=== PATIENT | female | born 1945 | race Asian ===

== ENCOUNTER 2018-10-18 12:34 | Outpatient (CLI) | payer OTHER | END 2018-10-18 21:15 | disposition home or self-care (01) | LOC: SMI 12:34 | PROVIDERS: ATTEND Internal Medicine | DX: K43.9 Ventral hernia without obstruction or gangrene (principal); K83.8 Other specified diseases of biliary tract; R93.49 Abnormal radiologic findings on diagnostic imaging of other urinary organs; Z90.49 Acquired absence of other specified parts of digestive tract | CPT/HCPCS: 74181 ==

== ENCOUNTER 2019-06-09 20:31 | Inpatient (IN) | payer OTHER, MEDICAID ==
[~2019-06-09] VITALS: Ht 152.4 cm; Wt 102.1 kg
[2019-06-09 20:35] VITALS: BP_SYST 163
--- NOTE | 2019-06-09 20:59 | NUR ---
, Emir, would like call back on work phone number when work up has been completed.
[2019-06-09] MEDS ORDERED: PIPERACILLIN/TAZO 3.375 GM in NS 50 ML IV ONE (21:15)
[2019-06-09] MEDS ORDERED: NACL 0.9% 1,000 ML IV ONE ×2 (21:15)
--- NOTE | 2019-06-09 21:16 | NUR ---
Placed in room 6 . Placed on site monitor, blood pressure machine and pulse oximeter. To gown for exam. Side rails up. Report given to SATHISH PURI.
--- NOTE | 2019-06-09 21:30 | NUR ---
# 22 gauge angiocath placed to Left hand. Use of asceptic technique. Opsite placed over site. Blood return noted. Blood for lab drawn from site. Flushed with 10 cc of normal saline. No evidence of infiltration noted. Patient tolerated well.
[2019-06-09] MEDS ORDERED: PIPERACILLIN/TAZOBACTAM 3.375 GM/VIAL (ZOSYN) IV ONE (21:45)
--- NOTE | 2019-06-09 21:50 | NUR ---
patient BIB BLS transport from home with c/o generalized weakness. patient is A&O x 2 and is responsive to pain and other stimili. patient was seen at [facility] for a UTI. patient was discharged with antibiotics that have not been filled. no other complaint or injury at this time.
[2019-06-09 21:56] LABS: BASOPHILS % (AUTO) 0.4 % (0.0-2.0); EOSINOPHILS % (AUTO) 0.3 % (0.0-4.0); HEMATOCRIT 36.7 % (36-48); HEMOGLOBIN 13.1 g/dL (12.0-16.0); LYMPHOCYTES # (AUTO) 0.5 K/uL (1.0-5.5); LYMPHOCYTES % (AUTO) 6.6 % (20.5-51.5); MEAN CORPUSCULAR HEMOGLOBIN 31 pg (27-31); MEAN CORPUSCULAR HGB CONC 36 % (32-36); MEAN CORPUSCULAR VOLUME 88 fL (79.0-98.0); MONOCYTES # (AUTO) 0.7 K/uL (0.0-1.0); NEUTROPHILS # (AUTO) 5.9 K/uL (1.8-7.7); NEUTROPHILS % (AUTO) 82.7 % (40.0-70.0); RED BLOOD CELL COUNT(AUTO) 4.17 MIL/uL (4.2-6.2); RED CELL DISTRIBUTION WIDTH 16.5 % (9.0-15.0); WHITE BLOOD COUNT (AUTO) 7.2 K/uL (4.8-10.8)
[2019-06-09 22:01] LABS: ANION GAP 8 (5-15); CHLORIDE 99 mmol/L (98-107); POTASSIUM 3.7 mmol/L (3.5-5.1); SODIUM SERUM 134 mmol/L (136-145)
[2019-06-09 22:02] LABS: INR 1.2 (0.8-1.2); PROTHROMBIN TIME 12.3 SECS (9.5-12.5)
[2019-06-09 22:10] LABS: PLATELET COUNT (AUTO) 180 K/uL (130-430)
--- NOTE | 2019-06-09 23:00 | NUR ---
ER at bedside examining patient.
[2019-06-09 23:08] LABS: ALANINE AMINOTRANSFERASE 20 U/L (12-78); ALBUMIN 1.7 g/dL (3.4-4.8); ASPARTATE AMINOTRANSFERASE 52 U/L (10-37); CREATININE 1.15 mg/dL (0.55-1.30); GLUCOSE 303 mg/dL (70-99); TOTAL BILIRUBIN 4.1 mg/dL (0.0-1.0); UREA NITROGEN, BLOOD 12 mg/dL (8-21)
[2019-06-09 23:11] LABS: CALCIUM 8.6 mg/dL (8.4-11.0)
[2019-06-10] VITALS (7 sets, daily range): BP systolic 134–160
--- NOTE | 2019-06-10 | NUR ---
IV site lost. unable to obtain new IV, Charge nurse notified.
--- NOTE | 2019-06-10 02:30 | NUR ---
Patient will be admitted to care of Dr. Winston. Admitted to Tele unit. Will go to room 103-A. Belongings list completed. Summary report printed. Report will be given at bedside.
--- NOTE | 2019-06-10 02:52 | NUR ---
Admission Note Received patient from ER with diagnosis of Sepsis. Initial Plan of Care discussed-patient verbalized understanding. Oriented to room, call light, pain management and safety.
--- NOTE | 2019-06-10 02:52 | NUR ---
ADMISSION: The patient, MANDY MG, 74 y/o, F admitted by XAVIER CALVO MD, was given written information regarding hospital policies, unit procedures and contact persons. Valuables were checked and documented.
[2019-06-10] MEDS: NACL 0.9% 1,000 ML IV SCH ×4 (03:03→22:49)
--- NOTE | 2019-06-10 04:50 | NUR ---
ROUNDS Patient in bed, sleeping at this time. No s/s of acute distress noted. Breathing even and unlabored. HOB raised. Skin warm and dry to touch. IVF infusing well, IV site is patent, no signs of infiltration or infection noted. Call light with patient. Bed alarm on. Will continue to monitor.
[2019-06-10] MEDS ORDERED: PIPERACILLIN/TAZOBACTAM 2.25 GM VIAL IV ONE (05:37)
[2019-06-10] MEDS: PIPERACILLIN/TAZO 2.25G/DEX-IS 50 ML IV SCH ×3 (05:44→17:52)
--- NOTE | 2019-06-10 06:16 | NUR ---
CLOSING NOTES Patient in bed sleeping at this time. No s/s of acute distress noted. Breathing even and unlabored. IVF infusing well, IV site patent, no signs of infiltration or infection noted. Skin warm and dry to touch. All needs met throughout shift. Fall and safety precautions maintained throughout shift. Will continue to monitor until patient care is endorsed to oncoming dayshift nurse.
[2019-06-10] MEDS ORDERED: MORPHINE 2 MG/ML INJ. SYRINGE IVP PRN (07:15)
[2019-06-10] MEDS ORDERED: ALBUTEROL SULFATE 0.083% 2.5 MG/3 ML VIAL.NEB INH PRN (07:15)
[2019-06-10] MEDS ORDERED: ONDANSETRON HCL 4 MG/2 ML VIAL IVP PRN (07:15)
--- NOTE | 2019-06-10 07:30 | NUR ---
Opening note Patient sitting up in bed at this time, no complaints of pain. no SOB. Iv patent, intact, and infusing fluids as ordered. No adverse side effects noted. On safety and aspiration precautions. HOB kept elevated, bed alarm on, bed in lowest position, 3 side rails up. call light within reach. patient in stable condition. Will continue to monitor.
[2019-06-10] MEDS ORDERED: DEXTROSE 50%-WATER 50 ML DISP.SYRIN IVP PRN (07:45)
[2019-06-10] MEDS ORDERED: D5W 1,000 ML IV PRN (07:45)
[2019-06-10] MEDS ORDERED: GLUCOSE 15 GM GEL (in 37.5 GM TUBE) PO PRN (07:45)
[2019-06-10] MEDS: INSULIN LISPRO SLIDING SCALE 100 UNITS/ML VIAL (humaLOG) SUBCUT PRN ×4 (08:19→20:30)
[2019-06-10 08:26] LABS: INR 1.2 (0.8-1.2); PROTHROMBIN TIME 11.9 SECS (9.5-12.5)
--- NOTE | 2019-06-10 08:30 | NUR ---
blood sugar check/ ultrasound Patient blood sugar checked and insulin given as ordered. Tray held until now due to ultrasound. Ultrasound done. Tray given to patient. patient tolerated breakfast well. No nausea, no vomiting noted.
[2019-06-10 08:49] LABS: ALANINE AMINOTRANSFERASE 20 U/L (12-78); CHLORIDE 102 mmol/L (98-107); POTASSIUM 3.4 mmol/L (3.5-5.1); SODIUM SERUM 136 mmol/L (136-145); UREA NITROGEN, BLOOD 11 mg/dL (8-21)
[2019-06-10 09:02] LABS: ALBUMIN 1.6 g/dL (3.4-4.8); ANION GAP 8 (5-15); ASPARTATE AMINOTRANSFERASE 49 U/L (10-37); CALCIUM 7.6 mg/dL (8.4-11.0); CREATININE 1.03 mg/dL (0.55-1.30); GLUCOSE 294 mg/dL (70-99)
[2019-06-10 10:28] LABS: BASOPHILS % (AUTO) 0.9 % (0.0-2.0); EOSINOPHILS # (AUTO) 0.1 K/uL (0.0-0.4); EOSINOPHILS % (AUTO) 1.3 % (0.0-4.0); HEMATOCRIT 33.8 % (36-48); LYMPHOCYTES # (AUTO) 0.7 K/uL (1.0-5.5); LYMPHOCYTES % (AUTO) 13.1 % (20.5-51.5); MEAN CORPUSCULAR HEMOGLOBIN 31 pg (27-31); MEAN CORPUSCULAR HGB CONC 36 % (32-36); MEAN CORPUSCULAR VOLUME 88 fL (79.0-98.0); MONOCYTES # (AUTO) 0.8 K/uL (0.0-1.0); MONOCYTES % (AUTO) 14.9 % (1.7-9.3); NEUTROPHILS # (AUTO) 3.8 K/uL (1.8-7.7); NEUTROPHILS % (AUTO) 69.8 % (40.0-70.0); PLATELET COUNT (AUTO) 103 K/uL (130-430); RED BLOOD CELL COUNT(AUTO) 3.84 MIL/uL (4.2-6.2); RED CELL DISTRIBUTION WIDTH 16.9 % (9.0-15.0); WHITE BLOOD COUNT (AUTO) 5.5 K/uL (4.8-10.8)
--- NOTE | 2019-06-10 10:30 | NUR ---
Rounds Patient sitting up in bed, no complaints of pain. No soB. Offered ice water, and bedpan. Patient denied need.
[2019-06-10] MEDS ORDERED: PRO40 PO (12:38)
[2019-06-10] MEDS ORDERED: FURO-150 PO (12:38)
[2019-06-10] MEDS ORDERED: SSNOVOLOG SUBCUT (12:38)
[2019-06-10] MEDS ORDERED: PROP10TA10 PO (12:38)
[2019-06-10] MEDS ORDERED: INSU100V9 SQ (12:38)
[2019-06-10] MEDS ORDERED: LACT10SO6 PO (12:38)
[2019-06-10] MEDS ORDERED: LISI-600 PO (12:38)
[2019-06-10] MEDS ORDERED: OSCD500 PO (12:38)
[2019-06-10] MEDS ORDERED: RIFA550T5 PO (12:38)
--- NOTE | 2019-06-10 12:45 | NUR ---
Lunch patient sitting up in bed at this time, eating lunch. tolerating well. No nausea, no vomiting noted. patient in stable condition.
--- NOTE | 2019-06-10 14:45 | NUR ---
Linen change Linens changed, skin care provided. patient in stable condition. No complaints of pain.
--- NOTE | 2019-06-10 17:45 | NUR ---
Dinner patient sitting up in bed, eating dinner, tolerating well. no nausea, no vomiting noted. patient in stable condition.
--- NOTE | 2019-06-10 18:30 | NUR ---
closing note Patient sitting up in bed at this time, no complaints of pain. no SOB. Iv patent, intact, and infusing fluids as ordered. No adverse side effects noted. On safety and aspiration precautions. HOB kept elevated, bed alarm on, bed in lowest position, 3 side rails up. call light within reach. patient in stable condition. All needs met.
--- NOTE | 2019-06-10 19:41 | NUR ---
Pt was received lying in bed awake and oriented to her name and place. No c/o pain or discomfort. Skin is warm and dry to touch. No signs or symptoms of hypoglycemia or hyperglycemia noted. IVF of NS is infusing well at 125ml/hr in RW without any signs of infiltration. Fall and safety precautions are in place. Call light is with pt. Bed alarm is on and bed is in the lowest and locked positions.
--- NOTE | 2019-06-10 20:30 | NUR ---
Accucheck 337 and 8 units Humalog Insulin given SQ. Skin remains warm and dry to touch. Pt declined HS snacks. Fall and safety precautions are in place.
--- NOTE | 2019-06-10 22:00 | NUR ---
Pt is resting quietly in bed. IVF is infusing well in RW without any signs of infiltration. Call light is with pt and bed alarm is on.
--- NOTE | 2019-06-11 | NUR ---
No acute distress noted. IVF is infusing well. Call light is with pt and bed alarm is on.
[2019-06-11 00:10] VITALS: BP_SYST 145
[2019-06-11] MEDS: PIPERACILLIN/TAZO 2.25G/DEX-IS 50 ML IV SCH ×5 (00:29→23:36)
--- NOTE | 2019-06-11 02:00 | NUR ---
Pt is awake and watching TV. RA electrode off and was reapplied. Pt stated she didn't remove it. IVF is infusing well in RW. Fall and safety precautions are in place.
--- NOTE | 2019-06-11 03:24 | NUR ---
Pt is awake and watching TV. IVF is infusing well RW. Fall and safety precautions are in place.
--- NOTE | 2019-06-11 05:21 | NUR ---
Pt is resting quietly in bed. IVF is infusing well in RW. Fall and safety precautions are in place.
[2019-06-11] MEDS: INSULIN LISPRO SLIDING SCALE 100 UNITS/ML VIAL (humaLOG) SUBCUT PRN ×4 (05:59→21:04)
--- NOTE | 2019-06-11 06:40 | NUR ---
Pt is awake and resting comfortably in bed. IVF is infusing well in RW. Accucheck 289 this AM and 6 units Humalog Insulin given SQ. Skin remains warm and dry to touch. Fall and safety precautions are in place. Will endorse to day shift nurse.
--- NOTE | 2019-06-11 07:18 | NUR ---
Nutrition Update Vicente Scale 14 noted. Pt admitted for Sepsis Diet: [facility] BMI: 43.9 kg/m2 RD to follow per nutrition care standards.
[2019-06-11 07:23] LABS: BASOPHILS # (AUTO) 0.1 K/uL (0.0-0.2); EOSINOPHILS # (AUTO) 0.2 K/uL (0.0-0.4); EOSINOPHILS % (AUTO) 3.3 % (0.0-4.0); HEMATOCRIT 33.3 % (36-48); HEMOGLOBIN 11.7 g/dL (12.0-16.0); LYMPHOCYTES # (AUTO) 0.8 K/uL (1.0-5.5); LYMPHOCYTES % (AUTO) 13.5 % (20.5-51.5); MEAN CORPUSCULAR HEMOGLOBIN 31 pg (27-31); MEAN CORPUSCULAR HGB CONC 35 % (32-36); MEAN CORPUSCULAR VOLUME 89 fL (79.0-98.0); MONOCYTES # (AUTO) 0.7 K/uL (0.0-1.0); MONOCYTES % (AUTO) 12.8 % (1.7-9.3); NEUTROPHILS # (AUTO) 3.9 K/uL (1.8-7.7); NEUTROPHILS % (AUTO) 69.4 % (40.0-70.0); PLATELET COUNT (AUTO) 115 K/uL (130-430); RED BLOOD CELL COUNT(AUTO) 3.73 MIL/uL (4.2-6.2); RED CELL DISTRIBUTION WIDTH 16.7 % (9.0-15.0); WHITE BLOOD COUNT (AUTO) 5.6 K/uL (4.8-10.8)
--- NOTE | 2019-06-11 07:30 | NUR ---
Opening Notes Patient received lying comfortably in her bed with respiration even and unlabored. Alert, awake and verbally responsive. Denies any pain or discomfort at this time. IVF infusing well. Discussed with plan of care and call light today, verbalized understanding. Call light within the reach. Will continue to monitor.
[2019-06-11 07:50] LABS: ALANINE AMINOTRANSFERASE 20 U/L (12-78); ALBUMIN 1.6 g/dL (3.4-4.8); ANION GAP 7 (5-15); ASPARTATE AMINOTRANSFERASE 53 U/L (10-37); CALCIUM 7.9 mg/dL (8.4-11.0); CHLORIDE 102 mmol/L (98-107); CREATININE 0.95 mg/dL (0.55-1.30); GLUCOSE 312 mg/dL (70-99); POTASSIUM 3.6 mmol/L (3.5-5.1); SODIUM SERUM 135 mmol/L (136-145); TOTAL BILIRUBIN 2.9 mg/dL (0.0-1.0); UREA NITROGEN, BLOOD 12 mg/dL (8-21)
[2019-06-11 08:00] VITALS: BP_SYST 164
[2019-06-11] MEDS: NACL 0.9% 1,000 ML IV SCH ×3 (09:25→23:36)
--- NOTE | 2019-06-11 09:45 | NUR ---
RN Rounds Patient remain to be alert, awake and verbally responsive. IVF remain to be patent and intact. All medications due given as ordered, well tolerated. Call light within the reach. Fall precaution observed.
[2019-06-11] MEDS: LACTULOSE 20 GM/30 ML UDC PO SCH ×4 (10:19→21:02)
[2019-06-11] MEDS: PANTOPRAZOLE SODIUM 40 MG TAB PO SCH (10:19)
[2019-06-11] MEDS: RIFAXIMIN 550 MG TABLET PO SCH ×2 (10:19→21:03)
[2019-06-11] MEDS: PROPRANOLOL HCL 10 MG TABLET (INDERAL) PO SCH ×2 (10:23→21:02)
[2019-06-11] MEDS: LISINOPRIL 20 MG TABLET PO SCH (10:24)
[2019-06-11] MEDS: FUROSEMIDE 20 MG TABLET PO SCH (10:24)
[2019-06-11 11:16] VITALS: BP_SYST 149
--- NOTE | 2019-06-11 11:30 | NUR ---
Blood sugar check patient's blood sugar is 358, due insulin given as ordered, well tolerated. Attended to needs and anticipated. Call light within the reach.
--- NOTE | 2019-06-11 13:40 | NUR ---
RN Round Patient resting well. Denies any pain or discomfort at this time. Call light within the reach. Will continue to monitor.
--- NOTE | 2019-06-11 15:30 | NUR ---
Rn ROUND Patient currently lying comfortably in her bed with respiration even and unlabored. Denies any pain or discomfort at this time. Call light within the reach.
--- NOTE | 2019-06-11 15:45 | NUR ---
Received a call from Dr. Bueno received a call from Dr. Bueno, notified regarding patient incontinent unable to collect urine specimen, per MD lou to do Straight catheter for urine specimen collection, noted and carried out.
[2019-06-11 15:46] VITALS: BP_SYST 154
--- NOTE | 2019-06-11 17:01 | NUR ---
P.T. NOTES Pt AWAKE & ALERT IN BED, SPEAKS LAO & TAGALOG, DECLINED TO PARTICIPATE W/ P.T., STATES SHE ALREADY WALKED W/ HER FAMILY, EXPLAINED RISKS OF BEDBOUND & IMPORTANCE OF THERAPY, Pt STATES "I AM NOT BEDBOUND! I ALREADY GOT UP EARLIER, I WANT TO REST NOW"; REPORTS ABD PAIN, P.S. 8-06/28, RN NOTIFIED; BED ALARM ON, CALL WHITLEY, PHONE, TABLE IN REACH, APPRECIATIVE; FF UP WHEN PARTICIPATIVE.
--- NOTE | 2019-06-11 17:20 | NUR ---
Refused Morphine Patient have order for morphine for pain, offered for pain medication, patient refused morphine. She complained of pain to her abdominal fold rash, applied barrier cream, patient verbalized tolerance to pain.
--- NOTE | 2019-06-11 18:47 | NUR ---
Closing Notes Patient remain to be alert, awake and verbally responsive. Denies any pain or discomfort at this time. IVATB Zosyn still infusing. Call light within the reach. Will endorsed to next shift.
--- NOTE | 2019-06-11 19:20 | NUR ---
OPENING NOTES Bedside report received from dayshift nurse. Patient received lying in bed, HOB raised. NO s/s of acute distress noted. Breathing even and unlabored. Patient denies any pain or discomfort. IVF infusing well, IV site patent, no signs of infiltration or infection noted. SCDs attached and operating. Skin warm and dry to touch, No signs of hypoglycemia noted. Call light with patient. Bed alarm on. Will continue to monitor.
[2019-06-11 20:00] VITALS: BP_SYST 148
--- NOTE | 2019-06-11 21:00 | NUR ---
ROUNDS Patient in bed receiving incontinent care from [employer]. Patient tolerating well. Will continue to monitor.
--- NOTE | 2019-06-11 23:00 | NUR ---
ROUNDS Patient sleeping. No s/s of acute distress noted. Breathing even and unlabored. IVF infusing well. All needs met. Call light with patient. Bed alarm on. Will continue to monitor.
[2019-06-11 23:11] VITALS: BP_SYST 133
--- NOTE | 2019-06-12 01:00 | NUR ---
ROUNDS Patient in bed sleeping. No signs of discomfort noted. Chest rise and fall even bilaterally. IVF infusing well. Call light with patient. Bed alarm on. Will continue to monitor.
--- NOTE | 2019-06-12 03:00 | NUR ---
ROUNDS Patient sleeping at this time. No s/s of acute distress noted. Breathing even and unlabored. IVF infusing well. All needs met. Call light with patient. Bed alarm on. Will continue to monitor.
[2019-06-12 04:07] LABS: BILIRUBIN,URINE 1+ (NEGATIVE); BLOOD, URINE 2+ (NEGATIVE); CLARITY/URINE SL HAZY (CLEAR); COLOR,URINE YELLOW (YELLOW); GLUCOSE,URINE 1+ (NEGATIVE); KETONES,URINE NEGATIVE (NEGATIVE); LEUKOCYTE ESTERASE ,URINE NEGATIVE (NEGATIVE); NITRITE, URINE NEGATIVE (NEGATIVE); PROTEIN URINE 2+ (NEGATIVE)
--- NOTE | 2019-06-12 05:00 | NUR ---
ROUNDS Patient in bed sleeping. No signs of discomfort noted. Chest rise and fall even bilaterally. Call light with patient. Will continue to monitor.
[2019-06-12 06:03] LABS: BACTERIA,URINE FEW /HPF (None Seen); WBC,URINE 0-3 /HPF (0-3)
[2019-06-12] MEDS: PIPERACILLIN/TAZO 2.25G/DEX-IS 50 ML IV SCH ×4 (06:04→23:30)
[2019-06-12 06:05] LABS: YEAST,URINE Rare /HPF (None Seen)
[2019-06-12] MEDS: INSULIN LISPRO SLIDING SCALE 100 UNITS/ML VIAL (humaLOG) SUBCUT PRN ×4 (06:05→21:10)
[2019-06-12 06:06] LABS: HYALINE CASTS, URINE 0-10 /LPF (None Seen)
--- NOTE | 2019-06-12 06:47 | NUR ---
CLOSING NOTES Patient in bed, eyes closed, appears to be asleep. No s/s of acute distress noted. Breathing even and unlabored. IVF infusing well, IV site patent, no signs of infiltration or infection noted. SCDs attached and operating. Skin warm and dry to touch, no s/s of hypoglycemia noted. All needs met throughout shift. Fall and safety precautions maintained throughout shift. Will continue to monitor until patient care is endorsed to oncoming dayshift nurse.
--- NOTE | 2019-06-12 07:20 | NUR ---
INITIAL NOTE Patient awake, resting in bed. Denies any pain, n/v. Educated pt on use of call light and bed alarm, pt verbalized understanding. Call light within reach, bed in low and locked position, bed alarm on.
[2019-06-12 08:00] VITALS: BP_SYST 178
[2019-06-12] MEDS: PANTOPRAZOLE SODIUM 40 MG TAB PO SCH (08:32)
[2019-06-12] MEDS: LACTULOSE 20 GM/30 ML UDC PO SCH ×8 (08:32→23:30)
[2019-06-12] MEDS: RIFAXIMIN 550 MG TABLET PO SCH ×2 (08:32→21:02)
[2019-06-12] MEDS: NACL 0.9% 1,000 ML IV SCH ×2 (08:33→17:48)
[2019-06-12] MEDS: FUROSEMIDE 20 MG TABLET PO SCH (08:35)
[2019-06-12] MEDS: LISINOPRIL 20 MG TABLET PO SCH (08:35)
[2019-06-12] MEDS: PROPRANOLOL HCL 10 MG TABLET (INDERAL) PO SCH ×2 (08:36→21:02)
[2019-06-12 09:07] LABS: BASOPHILS # (AUTO) 0.1 K/uL (0.0-0.2); BASOPHILS % (AUTO) 1.1 % (0.0-2.0); EOSINOPHILS # (AUTO) 0.4 K/uL (0.0-0.4); EOSINOPHILS % (AUTO) 5.6 % (0.0-4.0); HEMATOCRIT 36.3 % (36-48); HEMOGLOBIN 12.6 g/dL (12.0-16.0); LYMPHOCYTES # (AUTO) 1.2 K/uL (1.0-5.5); MEAN CORPUSCULAR HEMOGLOBIN 31 pg (27-31); MEAN CORPUSCULAR HGB CONC 35 % (32-36); MEAN CORPUSCULAR VOLUME 88 fL (79.0-98.0); MONOCYTES # (AUTO) 0.9 K/uL (0.0-1.0); MONOCYTES % (AUTO) 12.7 % (1.7-9.3); NEUTROPHILS # (AUTO) 4.2 K/uL (1.8-7.7); NEUTROPHILS % (AUTO) 62.6 % (40.0-70.0); PLATELET COUNT (AUTO) 134 K/uL (130-430); RED BLOOD CELL COUNT(AUTO) 4.13 MIL/uL (4.2-6.2); RED CELL DISTRIBUTION WIDTH 16.7 % (9.0-15.0); WHITE BLOOD COUNT (AUTO) 6.7 K/uL (4.8-10.8)
[2019-06-12 09:23] LABS: ALANINE AMINOTRANSFERASE 18 U/L (12-78); ALBUMIN 1.6 g/dL (3.4-4.8); ANION GAP 5 (5-15); ASPARTATE AMINOTRANSFERASE 47 U/L (10-37); CALCIUM 7.5 mg/dL (8.4-11.0); CHLORIDE 104 mmol/L (98-107); CREATININE 0.96 mg/dL (0.55-1.30); GLUCOSE 307 mg/dL (70-99); POTASSIUM 3.5 mmol/L (3.5-5.1); SODIUM SERUM 136 mmol/L (136-145); TOTAL BILIRUBIN 2.9 mg/dL (0.0-1.0); UREA NITROGEN, BLOOD 8 mg/dL (8-21)
--- NOTE | 2019-06-12 09:27 | NUR ---
Physician Rounds Dr. Bueno at bedside examining patient. Addendum: 06/12/19 at 0937 by Regi Medina RN new orders received, verified with read back
--- NOTE | 2019-06-12 09:30 | NUR ---
RN ROUNDS Pt awake, high fowlers. Denies any pain or n/v.
--- NOTE | 2019-06-12 09:59 | NUR ---
Dietitian Recommendations *[facility] Low Carb 45 gm. *Diet and lifestyle modification. Please see Nutritional Assessment BLADE, RD
--- NOTE | 2019-06-12 10:30 | NUR ---
RN ROUNDS Pt awake, watching television. Denies any pain, n/v at this time.
[2019-06-12 11:05] VITALS: BP_SYST 161
--- NOTE | 2019-06-12 11:25 | NUR ---
Wound Evaluation: Late note for 1125 on 06/12/19 secondary to patient care. Wound Consult ordered for low Vicente score. Patient evaluated for a low Vicente score of 17. Patient was awake, alert, oriented x 2, and received in a Darwin bed with an Isoflex ANTONIO mattress with low air loss therapy initiated. Patient is unable to turn in bed independently. Skin is fair (-). Recommend: Encourage and assist patient as needed with repositioning [id number] only every two hours with pillow support. Elevate, off-load, and float bilateral heels with pillows. Offload pressure areas with pillows for pressure re-distribution. Perform skin care and monitor skin integrity q shift. Use Calmoseptine cream on moisture susceptible areas qid and as needed for soiling. Maintain patient on a low air-loss mattress. Skin assessment: 1. Right Abdominal Pannus: Erythema and MASD from intertrigo, present on admission. Site has horizontal linear shape with 100% pink tissue. No odor, no drainage. Periwound intact. Site measures 0.3 cm x 4.7 cm. 2. Bilateral Inguinal areas: Erythema from IAD, present on admission. No odor, no drainage. 3. Perineal area: Erythema from IAD, present on admission. No odor, no drainage. Recommend: Cleanse involved areas with mild soap and water. Pat dry. Apply antifungal powder to involved areas. Cut Inter-dry AG cloth to proper length and place in between pannus and inguinal fold areas. Perform site care twice a day, and as needed for soiling. Change Inter-dry AG cloth every 5 days, and as needed for soiling. 4. Buttock: Sulcus of buttock has erythema and MASD from intertrigo, present on admission. Site has vertical linear shape with 100% pink tissue. No odor, no drainage. Periwound intact. Site measures 10.5 cm x 0.4 cm. 5. Right buttock: Medial crease of buttock has erythema and MASD from intertrigo, present on admission. Site has vertical linear shape with 100% pink tissue. No odor, no drainage. Periwound intact. Site measures 2.0 cm x 0.4 cm. Recommend: Cleanse involved areas with mild soap and water. Pat dry. Apply Calmoseptine cream to involved areas. Cover with Sacral foam dressing. Perform site care daily, and as needed for dressing soiling or dislodgment. 6. Right posterior lateral thigh: Right mid posterior lateral thigh: Skin tear, present on admission. Skin tear has 100% pink tissue. No odor, no drainage. Periwound intact. Site measures 0.3 cm x 1.4 cm. Recommend: Cleanse site with normal Saline. Apply Calmoseptine cream to site. Cover with foam dressing. Perform site care daily, and as needed for dressing soiling or dislodgment. 7. Right mid lateral thigh: Ecchymosis, present on admission. Recommend: No dressing needed. Continue to monitor site qshift.
--- NOTE | 2019-06-12 11:30 | NUR ---
RN Rounds Pt awake. Incontinent of bowel, perineal care done, pt tolerated well. Pt changed and repositioned for comfort. Denies any pain, n/v, or discomfort.
--- NOTE | 2019-06-12 14:14 | NUR ---
Physical Therapy physical therapy at bedside working with patient, patient ambulating in room with walker, patient tolerating well.
[2019-06-12 14:41] VITALS: BP_SYST 167
[2019-06-12 15:15] VITALS: BP_SYST 165
--- NOTE | 2019-06-12 15:15 | NUR ---
DR. CALVO Spoke with Dr. Calvo, informed him of BP 167/67. New orders given, verified with telephone read back.
[2019-06-12] MEDS ORDERED: cloNIDine HCL 0.1 MG TABLET PO ONE (15:30)
[2019-06-12 17:02] VITALS: BP_SYST 151
--- NOTE | 2019-06-12 17:15 | NUR ---
RN ROUNDS Pt resting in bed. No acute distress noted. Breathing even and un-labored.
[2019-06-12] MEDS ORDERED: MENTHOL/ZINC OXIDE 113 GM OINT. TP PRN (17:45)
[2019-06-12] MEDS: NYSTATIN 15 GM TOPICAL POWDER TP SCH ×2 (17:45→21:14)
--- NOTE | 2019-06-12 19:25 | NUR ---
CLOSING NOTE BEDSIDE SBAR REPORT GIVEN TO RECEIVING RN. PT AWAKE, RESTING IN BED. DENIES ANY PAIN OR DISCOMFORT. CALL LIGHT WITHIN REACH, BED IN LOW AND LOCKED POSITION, BED ALARM ON. PT CARE ENDORSED TO COMMERCIAL PLUMBER NURSE.
--- NOTE | 2019-06-12 20:05 | NUR ---
PM SHIFT ASSESSMENT Received patient sitting up in bed, eating dinner, aox2, vital signs stable, on room air, denies any pain or discomfort at this time. IV line to right hand intact and patent, IVF infusing at 125 ml/hr. Plan of care discussed with patient, pleasantly confused at times, reoriented to time and place. Oriented to use call light for nurse assistance, light within reach, fall and safety measures in place, bed alarm on, will closely monitor.
[2019-06-12] MEDS: MENTHOL/ZINC OXIDE 113 GM OINT. TP SCH (21:14)
--- NOTE | 2019-06-12 22:15 | NUR ---
RN ROUNDS Patient awake, in no distress, due medications administered, blood sugar check this pm of 344, covered with insulin per md sliding scale. Patient had a bowel movement, incontinence care provided, repositioned with pillow support, fall and safety measures in place, will monitor.
--- NOTE | 2019-06-13 00:27 | NUR ---
RN ROUNDS Patient resting quietly in bed, in no distress, vital signs stable, IV antibiotics administered, repositioned with pillow support, fall and safety measures in place, will monitor.
[2019-06-13 00:35] VITALS: BP_SYST 152
[2019-06-13] MEDS: LACTULOSE 20 GM/30 ML UDC PO SCH ×3 (02:00→05:20)
--- NOTE | 2019-06-13 02:12 | NUR ---
RN ROUNDS Patient awake,resting quietly in bed, in no distress, refusing lactulose at this time, educated on the importance of medication, still refusing, repositioned with pillow support, fall and safety measures in place, will monitor.
[2019-06-13] MEDS: NACL 0.9% 1,000 ML IV SCH (02:21)
--- NOTE | 2019-06-13 04:13 | NUR ---
RN ROUNDS Patient asleep, respirations even and unlabored, repositioned with pillow support, fall and safety measures in place, will monitor.
[2019-06-13] MEDS: PIPERACILLIN/TAZO 2.25G/DEX-IS 50 ML IV SCH ×2 (05:21→11:39)
[2019-06-13] MEDS: INSULIN LISPRO SLIDING SCALE 100 UNITS/ML VIAL (humaLOG) SUBCUT PRN ×3 (05:26→16:44)
--- NOTE | 2019-06-13 06:05 | NUR ---
RN ROUNDS Patient awake, in no distress, due medications administered, blood sugar check this am of 235, covered with insulin per md sliding scale. Patient had another bowel movement, incontinence care provided, repositioned with pillow support, fall and safety measures maintained, will monitor until report given to am nurse.
[2019-06-13 06:26] LABS: BASOPHILS # (AUTO) 0.1 K/uL (0.0-0.2); BASOPHILS % (AUTO) 1.4 % (0.0-2.0); EOSINOPHILS # (AUTO) 0.3 K/uL (0.0-0.4); EOSINOPHILS % (AUTO) 5.6 % (0.0-4.0); HEMATOCRIT 33.6 % (36-48); HEMOGLOBIN 11.9 g/dL (12.0-16.0); LYMPHOCYTES % (AUTO) 20.8 % (20.5-51.5); MEAN CORPUSCULAR HEMOGLOBIN 31 pg (27-31); MEAN CORPUSCULAR HGB CONC 35 % (32-36); MEAN CORPUSCULAR VOLUME 88 fL (79.0-98.0); MONOCYTES # (AUTO) 0.6 K/uL (0.0-1.0); MONOCYTES % (AUTO) 11.9 % (1.7-9.3); NEUTROPHILS # (AUTO) 2.9 K/uL (1.8-7.7); NEUTROPHILS % (AUTO) 60.3 % (40.0-70.0); PLATELET COUNT (AUTO) 117 K/uL (130-430); RED BLOOD CELL COUNT(AUTO) 3.82 MIL/uL (4.2-6.2); RED CELL DISTRIBUTION WIDTH 16.8 % (9.0-15.0); WHITE BLOOD COUNT (AUTO) 4.8 K/uL (4.8-10.8)
[2019-06-13 06:44] LABS: ALANINE AMINOTRANSFERASE 17 U/L (12-78); ALBUMIN 1.5 g/dL (3.4-4.8); ANION GAP 6 (5-15); ASPARTATE AMINOTRANSFERASE 46 U/L (10-37); CALCIUM 7.5 mg/dL (8.4-11.0); CHLORIDE 106 mmol/L (98-107); CREATININE 0.81 mg/dL (0.55-1.30); GLUCOSE 248 mg/dL (70-99); POTASSIUM 3.2 mmol/L (3.5-5.1); SODIUM SERUM 140 mmol/L (136-145); TOTAL BILIRUBIN 2.6 mg/dL (0.0-1.0); UREA NITROGEN, BLOOD 6 mg/dL (8-21)
--- NOTE | 2019-06-13 07:35 | NUR ---
INITIAL NOTE Bedside report received by table games shift manager RN. Pt awake, no acute distress noted, pt denies n/v/ or pain. IVF infusing well. Call light within reach, bed in low and locked position with bed alarm on.
[2019-06-13 07:41] VITALS: BP_SYST 149
--- NOTE | 2019-06-13 08:59 | NUR ---
Physical Therapy patient ambulating in room with physical therapy and walker, patient tolerated well, patient assisted back to bed and repositioned, patient sitting up in bed eating breakfast.
[2019-06-13] MEDS: RIFAXIMIN 550 MG TABLET PO SCH (09:13)
[2019-06-13] MEDS: PANTOPRAZOLE SODIUM 40 MG TAB PO SCH (09:14)
[2019-06-13] MEDS: LISINOPRIL 20 MG TABLET PO SCH (09:14)
[2019-06-13] MEDS: PROPRANOLOL HCL 10 MG TABLET (INDERAL) PO SCH (09:14)
[2019-06-13] MEDS: FUROSEMIDE 20 MG TABLET PO SCH (09:15)
[2019-06-13] MEDS: NYSTATIN 15 GM TOPICAL POWDER TP SCH (09:15)
[2019-06-13] MEDS: MENTHOL/ZINC OXIDE 113 GM OINT. TP SCH ×3 (09:17→16:45)
--- NOTE | 2019-06-13 09:20 | NUR ---
MD ROUNDS DR. CALVO AT BESIDE EXAMINING PATIENT.
--- NOTE | 2019-06-13 09:50 | NUR ---
IV access IV catheter to right hand leaking, IV catheter removed, catheter intact, no bleeding, educated patient on purpose and procedure for IV catheter placement, patient verbalized understanding, IV catheter placed to right forearm, 22G, flushes easily with blood return, patient tolerated well.
[2019-06-13 11:27] VITALS: BP_SYST 149
[2019-06-13] MEDS: POTASSIUM CHLORIDE 20 MEQ TAB.PRT.SR PO SCH ×2 (11:38→15:30)
--- NOTE | 2019-06-13 11:50 | NUR ---
RN ROUNDS PT RESTING IN BED. NO ACUTE DISTRESS NOTED. BREATHING EVEN AN UNLABORED.
[2019-06-13] MEDS ORDERED: LACTULOSE 20 GM/30 ML UDC PO SCH (12:00)
--- NOTE | 2019-06-13 13:50 | NUR ---
RN ROUNDS Pt in high fowlers position, watching television. No acute distress noted. Denies pain, n/v.
--- NOTE | 2019-06-13 14:01 | NUR ---
SPOKE WITH DR. CALVO SPOKE WITH DR. CALVO, INFORMED MD OF ELEVATED BP 160/60. NEW ORDERS GIVEN, VERIFIED WITH TELEPHONE READ BACK.
--- NOTE | 2019-06-13 14:46 | NUR ---
Discharge planning spoke with Jen from HCP, per Jen patient has been [facility] to [facility] room number 111T
--- NOTE | 2019-06-13 15:30 | NUR ---
RN ROUNDS PT RESTING IN BED. DENIES ANY PAIN, DIZZINES, OR N/V.
[2019-06-13 15:47] VITALS: BP_SYST 160
--- NOTE | 2019-06-13 16:15 | NUR ---
Spoke with Patients spoke with Patients , obtained telephone consent for transfer to [facility], verified with second RN, informed him that patient is scheduled for transfer at 1700, understanding verbalized.
[2019-06-13] MEDS ORDERED: cloNIDine HCL 0.1 MG TABLET PO ONE (16:30)
--- NOTE | 2019-06-13 16:49 | NUR ---
Dinner early dinner provided to patient prior to transfer to [facility], patient sitting up in bed eating dinner, tolerating well, no acute distress noted.
--- NOTE | 2019-06-13 16:49 | NUR ---
REPORT GIVEN TO STEVIE MYERS report given to Suzette from [facility]. RN informed on molded goods spot picker [id number].
[2019-06-13 16:58] VITALS: BP_SYST 156
[2019-06-13 17:34] VITALS: BP_SYST 156
--- NOTE | 2019-06-13 17:45 | NUR ---
DISCHARGE DISCHARGE PACKET AND INSTRUCTIONS GIVEN TO AMBULANCE, WITH 24 HOUR MEDICATION RECONCILATION. SBAR REPORT GIVEN TO RECEIVING AMBULANCE. PT DENIES ANY PAIN, N/V. IV CATHETER REMOVED, CATHETER INTACT, NO BLEEDING. ID HOSPITAL BAND REMOVED, PLAIN ID BAND PLACED ON PATIENT. PT TAKEN VIA GURNEY TO [facility].
== END 2019-06-13 17:45 | DRG 441 ==
LOC: SED 20:31 → STU 06-10 00:13 → SMU 06-11 10:34
PROVIDERS: ADMIT Internal Medicine Hospice and Palliative Medicine; ATTEND Internal Medicine Hospice and Palliative Medicine
DX: K72.90 Hepatic failure, unspecified without coma (principal); E43 Unspecified severe protein-calorie malnutrition; N12 Tubulo-interstitial nephritis, not specified as acute or chronic; Z68.41 Body mass index [BMI] 40.0-44.9, adult; K74.60 Unspecified cirrhosis of liver; E66.01 Morbid (severe) obesity due to excess calories; E11.9 Type 2 diabetes mellitus without complications; Z88.8 Allergy status to other drugs, medicaments and biological substances
CPT/HCPCS: 36415; 71045; 76700-TC; 80053; 81000-TC; 82140-TC; 82962; 83605; 83880; 84484; 85025; 85610-TC; 87081; 93005; 94640; 94760; 96361; 96365; 97116-GP; 97530-GP; 99285; G0378; J2270; J2543; J7030; J7613